=== PATIENT | female | born 1995 | race Caucasian/White ===

== ENCOUNTER 2018-02-13 03:39 | Emergency (ER) | payer OTHER, MEDICAID ==
[~2018-02-13] VITALS: Ht 165.1 cm; Wt 59.0 kg
[2018-02-13 04:46] LABS: CLARITY,URINE CLEAR (Clear); COLOR,URINE YELLOW (Yellow); GLUCOSE, URINE NEGATIVE (Neg); KETONES,URINE NEGATIVE (Neg); LEUKOCYTE ESTERASE ,URINE SMALL (Neg); NITRITES, URINE NEGATIVE (Neg); OCCULT BLOOD,URINE SMALL (Neg); PH,URINE 6.5 (4.8-8.0); PROTEIN,URINE TRACE mg/dl (Neg); UA COLLECTION TYPE CLN CATCH MIDSTREAM; URINE HCG NEGATIVE (NEG); UROBILINOGEN,URINE 0.2 E.U/dL (0.2-1.0)
[2018-02-13 04:51] LABS: SQUAMOUS EPITHELIAL CELL,UR MODERATE /LPF (FEW); WBC,URINE 20-30 /HPF (0-4)
[2018-02-13 04:52] LABS: BACTERIA,URINE 2+ /HPF (Neg); RBC,URINE 0-2 /HPF (0-2)
[2018-02-13 05:47] LABS: BASOPHILS % (AUTO) 0.3 % (0-1); EOSINOPHILS # (AUTO) 0.2 X10'3 (0-0.9); EOSINOPHILS % (AUTO) 1.6 % (0-6); HEMATOCRIT 36.5 % (35.0-45.0); HEMOGLOBIN 12.6 g/dl (12.0-16.0); LYMPHOCYTES # (AUTO) 1.9 X10'3 (1.1-4.8); LYMPHOCYTES % (AUTO) 15.4 % (21-51); MEAN CORPUSCULAR HEMOGLOBIN 30.3 PG (27.0-31.0); MEAN CORPUSCULAR HGB CONC 34.6 % (33.0-36.5); MEAN CORPUSCULAR VOLUME 87.5 FL (78-98); MEAN PLATELET VOLUME 8.7 FL (7.4-10.4); MONOCYTES # (AUTO) 1.1 X10'3 (0-0.9); MONOCYTES % (AUTO) 9.2 % (2-12); NEUTROPHILS # (AUTO) 9.1 X10'3 (1.8-7.7); NEUTROPHILS % (AUTO) 73.5 % (42-75); PLATELET COUNT 219 X10'3 (140-440); RED BLOOD COUNT 4.17 X10'6 (4.20-5.60); RED CELL DISTRIBUTION WIDTH 12.3 % (11.5-14.5); WHITE BLOOD COUNT 12.3 X10'3 (4.5-11.0)
[2018-02-13 05:49] LABS: INR 0.9 INR; PROTHROMBIN TIME 9.5 SECONDS (9.0-12.0)
[2018-02-13 05:50] LABS: ALANINE AMINOTRANSFERASE 17 U/L (12-78); ALBUMIN 3.2 G/DL (3.4-5.0); ALBUMIN/GLOBULIN RATIO 0.8 (1.1-1.5); ALKALINE PHOSPHATASE 31 IU/L (46-116); ANION GAP 11 (8-16); ASPARTATE AMINO TRANSFERASE 10 U/L (10-37); BILIRUBIN,TOTAL 0.5 MG/DL (0.1-1.0); BLOOD UREA NITROGEN 11 MG/DL (7-18); CALCIUM 9.2 MG/DL (8.5-10.1); CHLORIDE 106 MMOL/L (99-107); GLUCOSE 116 MG/DL (70-104); SODIUM 143 MMOL/L (135-145); TOTAL CARBON DIOXIDE 25.9 MMOL/L (24-32); TOTAL PROTEIN 7.3 G/DL (6.4-8.2); eGFR 69 ML/MIN
[2018-02-13] MEDS ORDERED: ibuprofen tablet 400 MG TABLET PO ONE (08:25)
[2018-02-13] MEDS ORDERED: cephalexin 250mg capsule PO ONE (08:25)
[2018-02-13] MEDS ORDERED: CEPH500C5 PO (08:26)
[2018-02-13] MEDS ORDERED: ketorolac tromethamine 15mg/ml inj. IM ONE (08:30)
[2018-02-13 08:48] VITALS: BP 123/67
== END 2018-02-13 08:59 | disposition home or self-care (01) ==
LOC: ER 03:40
DX: N39.0 Urinary tract infection, site not specified (principal)
CPT/HCPCS: 36415; 80053; 81001; 81025; 85025; 85610; 87077; 87088; 87186; 96372; 99284; J1885

== ENCOUNTER 2019-01-09 18:37 | Emergency (ER) | payer MEDICAID, OTHER ==
[~2019-01-09] VITALS: Ht 165.1 cm; Wt 56.0 kg
[~2019-01-09 18:37] MED LIST: CEPH500C5 PO
[2019-01-09 18:49] VITALS: BP 127/85
== END 2019-01-09 19:55 ==
LOC: ER 18:47
DX: F10.10 Alcohol abuse, uncomplicated (principal); Z04.1 Encounter for examination and observation following transport accident; Z79.899 Other long term (current) drug therapy; Y90.9 Presence of alcohol in blood, level not specified
CPT/HCPCS: 71046; 72040; 99284

== ENCOUNTER 2025-08-23 23:14 | Emergency (ER) | payer MEDICAID, OTHER ==
[~2025-08-23] VITALS: Ht 165.1 cm; Wt 63.4 kg
[2025-08-23 23:21] VITALS: TEMP 98.2
[2025-08-24 00:23] LABS: MEAN PLATELET VOLUME 8.0 FL (7.4-10.4); RED CELL DISTRIBUTION WIDTH 12.2 % (11.5-14.5)
[2025-08-24 00:37] LABS: CREATININE 0.82 MG/DL (0.40-0.90); TOTAL CARBON DIOXIDE 25.2 MMOL/L (24-32); eCRCL 91 ML/MIN; eGFR 82 ML/MIN
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
[2025-08-24] MEDS: HYDROcodone/acetaminophen 10/325mg tab PO ONE (02:36)
[2025-08-24 02:41] VITALS: BP 155/87; PULSE 74; RESP 16; O2SAT 97
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
== END 2025-08-24 02:43 | disposition home or self-care (01) ==
LOC: EEVIPCON 23:15 → ER 23:15
DX: R09.01 Asphyxia (principal); Y04.8XXA Assault by other bodily force, initial encounter; Y93.89 Activity, other specified; Y92.89 Other specified places as the place of occurrence of the external cause; Y99.8 Other external cause status
CPT/HCPCS: 36415; 70498; 80053; 85025; 99285; Q9967